=== PATIENT | male | born 1950 | race Caucasian/White ===

== ENCOUNTER 2019-07-15 19:46 | Emergency (ER) | payer MEDICARE ==
[~2019-07-15] VITALS: Ht 162.6 cm; Wt 74.0 kg
[2019-07-15] MEDS ORDERED: SODIUM CHLORIDE 0.9% 1,000 ML IV ONE (20:03)
[2019-07-15 20:34] LABS: BASOPHILS % 0.5 % (0.0-2.0); EOSINOPHILS % 0.5 % (0.0-5.0); HEMATOCRIT. 36.6 % (42.0-52.0); HEMOGLOBIN. 12.2 g/dL (14.0-18.0); LYMPHOCYTES % 26.9 % (20.0-50.0); MEAN CORPUSCULAR HEMOGLOBIN 32.3 pg (28.0-32.0); MEAN PLATELET VOLUME 8.8 fl (7.4-10.4); MONOCYTES % 7.2 % (2.0-8.0); NEUTROPHILS % 64.9 % (40.0-76.0); PLATELET 174 x1000/uL (130-400); RED BLOOD CELL COUNT 3.77 mill/uL (4.7-6.1); RED CELL DISTRIBUTION WIDTH 14.3 % (11.6-14.6)
[2019-07-15 20:39] LABS: CHLORIDE 104 mEq/L (98-107)
[2019-07-15 20:44] LABS: ETHANOL BLOOD 296 mg/dL
[2019-07-15] MEDS: NALOXONE HCL 0.4 MG/ML 1ML VIAL IV PRN ×3 (20:57→21:09)
[2019-07-15] MEDS ORDERED: TETANUS, DIPHTHERIA, PERTUSSIS VAC/PF 0.5ML (>7YR OLD) IM ONE (23:45)
[2019-07-16 00:02] LABS: CLARITY URINE CLEAR (CLEAR); COLOR URINE YELLOW (YELLOW); KETONES URINE TRACE (NEGATIVE); LEUKOCYTE ESTERASE URINE NEGATIVE (NEGATIVE); NITRITE URINE NEGATIVE (NEGATIVE); OCCULT BLOOD URINE NEGATIVE (NEGATIVE); PH URINE 5.5 (4.5-8.0); PROTEIN URINE NEGATIVE (NEGATIVE); SPECIFIC GRAVITY URINE 1.017 (1.005-1.030); UROBILINOGEN URINE 0.2 E.U./dL (0.2-1.0)
[2019-07-16 00:12] LABS: *AMPHETAMINES SCREEN URINE NEGATIVE (NEGATIVE); *BARBITURATES SCREEN URINE NEGATIVE (NEGATIVE); *BENZODIAZEPINES SCREEN URINE NEGATIVE (NEGATIVE); *COCAINE SCREEN URINE NEGATIVE (NEGATIVE)
[2019-07-16 00:13] LABS: CANNABINOID URINE SCREEN NEGATIVE (NEGATIVE); METHADONE URINE SCREEN NEGATIVE (NEGATIVE); OPIATES URINE SCREEN NEGATIVE (NEGATIVE); PHENCYCLIDINE URINE SCREEN NEGATIVE (NEGATIVE)
[2019-07-16 02:27] VITALS: BP 81/43
== END 2019-07-16 02:50 | disposition home or self-care (01) ==
LOC: ER 19:50
DX: S01.81XA Laceration without foreign body of other part of head, initial encounter (principal); S09.8XXA Other specified injuries of head, initial encounter; N28.9 Disorder of kidney and ureter, unspecified; I95.9 Hypotension, unspecified; G82.20 Paraplegia, unspecified; F10.129 Alcohol abuse with intoxication, unspecified; D64.9 Anemia, unspecified; D72.829 Elevated white blood cell count, unspecified; Y08.89XA Assault by other specified means, initial encounter; Y93.9 Activity, unspecified; Y92.9 Unspecified place or not applicable; Y90.8 Blood alcohol level of 240 mg/100 ml or more
CPT/HCPCS: 12011; 36415; 70450; 71045; 80053; 80305; 80320; 81003; 85025; 90471; 90715; 93005; 96374; 99284; J2310; J7030; G0480